=== PATIENT | female | born 1965 | race Caucasian/White ===

== ENCOUNTER 2024-09-17 05:39 | Day surgery (SDC) | payer BC ==
[2024-09-14 15:49] LABS: BILIRUBIN,URINE NEGATIVE (Neg); CLARITY,URINE CLEAR (Clear); COLOR,URINE YELLOW (Yellow); GLUCOSE, URINE NEGATIVE (Neg); KETONES,URINE TRACE mg/dl (Neg); LEUKOCYTE ESTERASE ,URINE NEGATIVE (Neg); NITRITES, URINE NEGATIVE (Neg); OCCULT BLOOD,URINE NEGATIVE (Neg); PROTEIN,URINE NEGATIVE (Neg); UROBILINOGEN,URINE 0.2 E.U/dL (0.2-1.0)
[2024-09-14 15:50] LABS: BASOPHILS # (AUTO) 0.1 X10'3 (0-0.2); BASOPHILS % (AUTO) 0.8 % (0-1); EOSINOPHILS # (AUTO) 0.1 X10'3 (0-0.9); EOSINOPHILS % (AUTO) 0.9 % (0-6); LYMPHOCYTES # (AUTO) 1.5 X10'3 (1.1-4.8); LYMPHOCYTES % (AUTO) 20.1 % (21-51); MEAN CORPUSCULAR HEMOGLOBIN 31.5 PG (27.0-31.0); MEAN CORPUSCULAR HGB CONC 33.1 g/dL (33.0-36.5); MEAN PLATELET VOLUME 8.7 FL (7.4-10.4); MONOCYTES # (AUTO) 0.6 X10'3 (0-0.9); MONOCYTES % (AUTO) 8.9 % (2-12); NEUTROPHILS # (AUTO) 5.1 X10'3 (1.8-7.7); NEUTROPHILS % (AUTO) 69.3 % (42-75); PRE OP HEMATOCRIT 37.6 % (35.0-45.0); PRE OP HEMOGLOBIN 12.5 g/dL (12.0-16.0); PRE OP PLATELET COUNT 276 X10'3 (140-440); PRE OP WHITE BLOOD COUNT 7.3 10'3 (4.8-10.8); RED BLOOD COUNT 3.96 X10'6 (4.20-5.60); RED CELL DISTRIBUTION WIDTH 13.9 % (11.5-14.5)
[2024-09-14 15:57] LABS: UA COLLECTION TYPE CLN CATCH MIDSTREAM
[2024-09-14 16:55] LABS: ALBUMIN 4.2 G/DL (3.4-5.0); ALBUMIN/GLOBULIN RATIO 1.2 (1.1-1.5); ALKALINE PHOSPHATASE 64 IU/L (46-116); BLOOD UREA NITROGEN 20 MG/DL (7-18); BUN/CREATININE RATIO 24.7 (10.0-20.0); CALCIUM 8.7 MG/DL (8.5-10.1); CHLORIDE 101 MMOL/L (99-107); CREATININE 0.81 MG/DL (0.40-0.90); PRE OP ALT 27 U/L (30-65); PRE OP ANION GAP 9 (8-16); PRE OP AST 27 U/L (10-37); PRE OP BILIRUB, TOTAL 0.4 MG/DL (0.0-1.0); PRE OP GLUCOSE 92 MG/DL (70-104); PRE OP POTASSIUM 3.7 MMOL/L (3.4-5.1); PRE OP SODIUM 138 MMOL/L (135-145); TOTAL CARBON DIOXIDE 28.5 MMOL/L (24-32); TOTAL PROTEIN 7.7 G/DL (6.4-8.2); eGFR 73 ML/MIN
[2024-09-16] MEDS: DOCUMENT DATE & TIME OF BETA-BLOCKER PO ONE (21:30)
[2024-09-17] VITALS (10 sets, daily range): BP systolic 113–141; BP diastolic 75–85; PULSE 56–66; RESP 10–16; TEMP 98.4; O2SAT 96–100
[~2024-09-17] VITALS: Ht 154.9 cm; Wt 49.5 kg
[2024-09-17] MEDS: clindamycin-Cleocin 900mg/D5W 50 ML IV ONE (05:30)
[~2024-09-17 05:39] MED LIST: ACET600C PO; ASHWAGANDHA PO; COLLAGEN POWDER PO; DUTA0.5C40 PO; ESTR1PAT94 TD; NEBI2.5T6 PO; RESV100C PO; VITAMIN C PO; WOMENS DAILY PO; [UNRECOGNIZED DRUG - CODE] PO
[2024-09-17] MEDS ORDERED: BUPIVAcaine 2.5mg/ml inj 50ml vial (contains preservative) ONE (06:05)
[2024-09-17] MEDS ORDERED: BUPIVAcaine/PF 2.5mg/ml (0.25%) 10ml vial ONE (06:05)
[2024-09-17] MEDS: GENTAMICIN IV ONE (06:48)
[2024-09-17] MEDS: famotidine 20mg tablet PO ONE (06:48)
[2024-09-17] MEDS: NORMAL SALINE IV ONE (06:48)
[2024-09-17] MEDS: ringers solution, lacted 1,000 ML IV SCH (06:49)
[2024-09-17] MEDS ORDERED: fentaNYL /PF 50mcg/ml 5ml ampule ONE (06:51)
[2024-09-17] MEDS ORDERED: midazolam 1 mg/ML 2ml injection ONE (06:51)
[2024-09-17] MEDS ORDERED: sevoflurane 250ml liquid IH ONE (06:54)
[2024-09-17] MEDS ORDERED: labetalol 20mg/4ml (5mg/ml) syringe IV PRN (06:55)
[2024-09-17] MEDS ORDERED: HYDROmorphone/PF 0.2 MG/ML SYRINGE IV PRN ×2 (06:55)
[2024-09-17] MEDS ORDERED: ringers solution, lacted 1,000 ML IV SCH (06:55)
[2024-09-17] MEDS ORDERED: ondansetron/PF 4mg/2ml inj IV PRN (06:55)
[2024-09-17] MEDS ORDERED: hydrALAZINE 20mg/ml inj. IV PRN (06:55)
[2024-09-17] MEDS ORDERED: morphine 2 MG/ML inj. syringe IV PRN (06:55)
[2024-09-17] MEDS ORDERED: acetaminophen 1,000mg/100ml IV 100 ML IV ONE (06:55)
[2024-09-17] MEDS ORDERED: proCHLORperazine 10 MG/2 ml inj IV PRN (06:55)
[2024-09-17] MEDS ORDERED: morphine 4 MG/ML inj SYRINge IV PRN (06:55)
[2024-09-17] MEDS ORDERED: LIDOcaine 2% (20mg/ml) 5ml vial ONE (07:59)
[2024-09-17] MEDS ORDERED: propofol inj 20 ML IV ONE (07:59)
[2024-09-17] MEDS ORDERED: dexamethasone sod phosphate 4mg/ml inj. ONE (07:59)
[2024-09-17] MEDS ORDERED: rocuronium 10mg/ml inj IV ONE (07:59)
[2024-09-17] MEDS ORDERED: ondansetron/PF 4mg/2ml inj ONE (07:59)
[2024-09-17] MEDS ORDERED: neostigmine methylsulfate 1 MG/ML 10ml vial ONE ×2 (08:00→08:13)
[2024-09-17] MEDS ORDERED: glycopyrrolate 0.2mg/ml inj ONE (08:00)
== END 2024-09-17 09:35 | disposition home or self-care (01) ==
LOC: PAS 05:39
PROVIDERS: ATTEND Obstetrics & Gynecology Obstetrics
DX: Z15.02 Genetic susceptibility to malignant neoplasm of ovary (principal); I10 Essential (primary) hypertension; Z79.1 Long term (current) use of non-steroidal anti-inflammatories (NSAID); Z79.891 Long term (current) use of opiate analgesic; Z79.899 Other long term (current) drug therapy; Z90.710 Acquired absence of both cervix and uterus; Z90.79 Acquired absence of other genital organ(s); Z90.721 Acquired absence of ovaries, unilateral; Z98.890 Other specified postprocedural states; Z88.0 Allergy status to penicillin; Z88.2 Allergy status to sulfonamides; Z91.014 Allergy to mammalian meats
CPT/HCPCS: 36415; 71046; 80053; 81003; 82948; 85025; 86885; 86900; 86901; A4615; A4618; A7000; J1100; J1580; J2003; J2250; J2405; J2704; J2710; J3010; J3490; J7120